=== PATIENT | male | born 1955 | race Caucasian/White ===

== ENCOUNTER 2023-12-27 19:03 | Inpatient (IN) | payer OTHER, MEDICARE ==
[~2023-12-27] VITALS: Ht 180.3 cm; Wt 152.0 kg
[2023-12-27 19:32] LABS: BASOPHILS ABSOLUTE AUTO 0.02 K/mm3 (0.00-0.23); BASOPHILS PERCENT AUTO 0 % (0-2); EOSINOPHILS ABSOLUTE AUTO 0.01 K/mm3 (0.00-0.68); EOSINOPHILS PERCENT AUTO 0 % (0-6); Hematocrit 35.1 % (37.0-53.0); Hemoglobin 11.3 g/dL (13.5-17.5); IMMATURE GRAN ABSOLUTE AUTO 0.06 K/mm3 (0.00-0.10); IMMATURE GRAN PERCENT AUTO 1 % (0-1); LYMPHOCYTES ABSOLUTE AUTO 0.27 K/mm3 (0.84-5.20); LYMPHOCYTES PERCENT AUTO 4 % (21-46); MONOCYTES ABSOLUTE AUTO 0.12 K/mm3 (0.16-1.47); MONOCYTES PERCENT AUTO 2 % (4-13); Mean Corpuscular HGB 30.5 pg (26.0-34.0); Mean Corpuscular HGB Conc 32.2 g/dL (31.5-36.5); Mean Corpuscular Volume 95 fL (80-100); Mean Platelet Volume 11.3 fL (9.1-12.4); NEUTROPHILS ABSOLUTE AUTO 6.08 K/mm3 (1.96-9.15); NEUTROPHILS PERCENT AUTO 93 % (41-73); Platelet Count 166 K/mm3 (150-400); RDW Coefficient Variation 12.8 % (11.7-14.2); Red Blood Cell Count 3.71 M/mm3 (4.30-5.90); White Blood Cell Count 6.56 K/mm3 (4.00-11.30)
[2023-12-27 19:51] LABS: Albumin, Blood 3.8 g/dL (3.4-5.0); Albumin/Globulin Ratio 0.9 (0.8-1.8); Bilirubin, Total 0.6 mg/dL (0.1-1.0); Bun/Creatinine Ratio 11.6 (12.0-20.0); Calcium, Blood 8.6 mg/dL (8.5-10.1); Creatinine, Blood 4.05 mg/dL (0.60-1.20); Globulin, Blood 4.2 g/dL (2.2-4.0); Potassium, Blood 4.7 mmol/L (3.5-5.5)
[2023-12-27] MEDS ORDERED: ELIQUIS2.5 MG PO (20:15)
[2023-12-27] MEDS ORDERED: CLOP75 PO (20:15)
[2023-12-27] MEDS ORDERED: Lidocaine 2% Viscous Soln 15 ML UDC PO ONE (20:45)
[2023-12-27] MEDS ORDERED: Nitroglycerin 0.4 MG SUBL SL PRN (20:45)
[2023-12-27] MEDS ORDERED: Mag Hydrox/AL Hydrox/Simeth 30 ML UDC PO ONE (20:45)
[2023-12-27] MEDS ORDERED: Ondansetron HCl 2 MG / ML 2ML Vial IV PRN (22:10)
[2023-12-27] MEDS ORDERED: Aspirin 81 MG Chew PO ONE ×2 (22:10→23:40)
[2023-12-27] MEDS ORDERED: Labetalol HCL 5 MG/ML 4ML Injection (Single Dose) IV ONE (22:10)
[2023-12-28] VITALS (16 sets, daily range): BP systolic 111–204; BP diastolic 60–126
[2023-12-28] MEDS ORDERED: Clopidogrel Bisulfate 75 MG Tab PO ONE (02:30)
[2023-12-28] MEDS ORDERED: Labetalol HCL 5 MG/ML 4ML Injection (Single Dose) IV PRN (02:30)
[2023-12-28] MEDS ORDERED: HydrALAZINE HCl 20 MG / ML 1ML Vial IV PRN (02:35)
[2023-12-28] MEDS ORDERED: Acetaminophen 325 MG TABLET PO PRN (02:40)
[2023-12-28] MEDS ORDERED: OxyCODONE HCL 5 MG TAB PO PRN (02:40)
[2023-12-28] MEDS ORDERED: Metoclopramide HCl 5MG / ML 2ML Vial IV PRN (02:40)
[2023-12-28] MEDS ORDERED: Nitroglycerin 1 INCH/GM PKT TOP PRN (02:45)
[2023-12-28] MEDS ORDERED: Morphine Sulfate 4 MG/1 ML Injection IV PRN (02:45)
[2023-12-28] MEDS ORDERED: Heparin Sodium,Porcine/0.5 NS 500 ML IV SCH (03:20)
[2023-12-28] MEDS ORDERED: Heparin Sodium 5000 Units/ML 1ML MDV IV ONE ×2 (03:20→10:55)
[2023-12-28] MEDS ORDERED: Albuterol 2.5 MG/3 ML VIAL INH PRN (03:40)
[2023-12-28] MEDS ORDERED: Insulin Regular 100 UNIT/ML 10ML Vial SC SCH (03:40)
[2023-12-28] MEDS ORDERED: Atorvastatin 40 MG Tab PO SCH (03:45)
[2023-12-28] MEDS ORDERED: ALBU2.5V5 INH (03:46)
[2023-12-28] MEDS ORDERED: ALBU90OI INH (03:46)
[2023-12-28] MEDS ORDERED: ATOR20 PO (03:47)
[2023-12-28] MEDS ORDERED: Vitamin B-121000 MCG PO (03:48)
[2023-12-28] MEDS ORDERED: DOXA4 PO (03:48)
[2023-12-28] MEDS ORDERED: GABA100 PO (03:49)
[2023-12-28] MEDS ORDERED: HYDRA50 PO (03:50)
[2023-12-28] MEDS ORDERED: Ipratropium/Albuterol SulF 2.5-0.5MG/3 ML Amp INH PRN (03:50)
[2023-12-28] MEDS ORDERED: HYDACE10B PO (03:51)
[2023-12-28] MEDS ORDERED: COMBIVENT RESPIM4 G1 INH (03:53)
[2023-12-28] MEDS ORDERED: IPRAT-ALBUT 0.5-3 ML INH (03:53)
[2023-12-28] MEDS ORDERED: Robaxin750 MG PO (03:54)
[2023-12-28] MEDS ORDERED: ISODIN20 PO (03:54)
[2023-12-28] MEDS ORDERED: METO50ER PO (03:55)
[2023-12-28] MEDS ORDERED: Hair, Skin & N1 EACH PO (03:55)
[2023-12-28] MEDS ORDERED: NITR.4SL SL (03:56)
[2023-12-28] MEDS ORDERED: NOVOLIN 70100 UNIT/3 SC (03:57)
[2023-12-28] MEDS ORDERED: Pataday2.5 ML BOTHEYES (03:57)
[2023-12-28] MEDS ORDERED: POTCHL20ER PO (03:58)
[2023-12-28] MEDS ORDERED: Vitamin B-650 MG PO (03:58)
[2023-12-28] MEDS ORDERED: B-1100 M1 PO (03:59)
[2023-12-28] MEDS ORDERED: TORSE20 PO (04:00)
[2023-12-28] MEDS ORDERED: NASACORT10.8 ML (04:01)
[2023-12-28] MEDS ORDERED: TURMERIC500 M2 PO (04:02)
[2023-12-28 04:04] LABS: International Normalized Ratio 1.02; Prothrombin Time Results 10.9 Sec (9.7-11.5)
--- NOTE | 2023-12-28 05:18 | NUR ---
0220 Pt arrived on unit from ED via christ with RN in attendance. Ambulated with 1 person assist to bed in room PCU 17, prateek fair. Oriented to room and unit per unit standards. Pt with mutiple past hospitalizations at neighboring facilities but first admit here. Full physical assessment obtained, admission assessment completed. Abd incision lap site x 5 dermabonded/steri-strips, WNL. Please see full assessment for additional details. Pt denies pain currently. No further complaints or concerns at this time, will continue to monitor. 0330 Heparin gtt started, managed per pharmacy. Next Anti X at 1000.
[2023-12-28 07:15] LABS: Bun/Creatinine Ratio 12.2 (12.0-20.0); Calcium, Blood 8.6 mg/dL (8.5-10.1); Potassium, Blood 4.4 mmol/L (3.5-5.5)
--- NOTE | 2023-12-28 08:50 | NUR ---
AM ASSESSMENT: Pt resting in bed. Wakes without issues. Denies chest pain, SOB at this time. LS clear. BT positive. Pulses palp. Heparin gtt running per orders. X4 lap incisions noted, pt states there are 5 but only 4 seen by this RN. Pt NPO for potential angiogram today. Dr. Barrera and Dr. Cervantes in to see Pt. No other needs. Call light in reach.
[2023-12-28] MEDS ORDERED: Gabapentin 100 MG Cap PO SCH (09:00)
[2023-12-28] MEDS ORDERED: Aspirin 81 MG TabEC PO SCH (09:00)
[2023-12-28] MEDS ORDERED: Torsemide 10 MG TAB PO SCH (09:00)
[2023-12-28] MEDS ORDERED: Clopidogrel Bisulfate 75 MG Tab PO SCH (09:00)
[2023-12-28] MEDS ORDERED: Isosorbide Dinitrate 20 MG TAB PO SCH (09:00)
[2023-12-28] MEDS ORDERED: HydrALAZINE HCl 50 MG Tab PO SCH ×2 (09:00→21:00)
[2023-12-28] MEDS ORDERED: Methocarbamol 500 MG Tab PO SCH ×2 (09:00→21:00)
[2023-12-28] MEDS ORDERED: Metoprolol Succinate 50 MG TABCR PO SCH (09:00)
[2023-12-28] MEDS ORDERED: Dose Adjust by Pharmacy XX STA (10:53)
[2023-12-28] MEDS ORDERED: Verapamil HCL 2.5 MG/ML 2ML Injection ONE (13:48)
[2023-12-28] MEDS ORDERED: Heparin Sodium 1000 Units/ML 10ML MDV ONE ×2 (13:48→13:51)
[2023-12-28] MEDS ORDERED: NS 1,000 ML IV ONE ×2 (13:49→13:51)
[2023-12-28] MEDS ORDERED: NS 250 ML IV ONE (13:49)
[2023-12-28] MEDS ORDERED: Nitroglycerin 2 MG/20 ML BTL ONE (13:49)
[2023-12-28] MEDS ORDERED: NiCARdipine HCL 1,000 MCG/5 ML SYR ONE (13:51)
[2023-12-28] MEDS ORDERED: FentaNYL Citrate 50 MCG/ML 2 ML Injection ONE (14:19)
[2023-12-28] MEDS ORDERED: Midazolam HCl 1MG / ML 2ML Vial ONE (14:19)
--- NOTE | 2023-12-28 14:19 | NUR ---
PT TAKEN TO [facility]. WILL AWAIT RETURN
[2023-12-28] MEDS ORDERED: Clopidogrel Bisulfate 300 MG Cap ONE (14:48)
[2023-12-28] MEDS ORDERED: NS 1,000 ML IV SCH (15:50)
--- NOTE | 2023-12-28 15:57 | NUR ---
UPDATE: Pt back to room after angiogram. R wrist site with TR band intact. No bleeding, oozing or swelling noted. Pt desaturating on RA. States that he doesn't want to put on his cpap at this time so placed on NC, requiring 6L to keep o2 at 92%. IVF running per orders. Heparin off. Call light in reach. Will monitor.
--- NOTE | 2023-12-28 18:58 | NUR ---
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 Pt required 6L per nc O2 when he arrived back to room, now down to 4L per nc. Will continue to titrate down. Pt temp has slowly started to increase, t-max was 99.4. NO change in R radial site or abd lap incision sites. Pt denies increase in abd pain or tenderness. Will continue to monitor. at bedside. Dr. Wu in to talk to patient and his . WIll report to night RN.
[2023-12-28] MEDS ORDERED: Gabapentin 400 MG Cap PO SCH (21:00)
--- NOTE | 2023-12-28 22:25 | NUR ---
TR BAND RECOVERED TR BAND RECOVERED AT 2223. R. RADIAL SITE IS FREE FROM BLEEDING, HEMATOMA, BRUISING, OR REDNESS. TEGADERM APPLIED, ARM BOARD IN PLACE.
[2023-12-29 03:32] VITALS: BP 143/75
[2023-12-29 04:23] LABS: BASOPHILS ABSOLUTE AUTO 0.03 K/mm3 (0.00-0.23); BASOPHILS PERCENT AUTO 0 % (0-2); EOSINOPHILS ABSOLUTE AUTO 0.01 K/mm3 (0.00-0.68); EOSINOPHILS PERCENT AUTO 0 % (0-6); Hematocrit 29.7 % (37.0-53.0); Hemoglobin 9.4 g/dL (13.5-17.5); IMMATURE GRAN ABSOLUTE AUTO 0.03 K/mm3 (0.00-0.10); IMMATURE GRAN PERCENT AUTO 0 % (0-1); LYMPHOCYTES ABSOLUTE AUTO 0.54 K/mm3 (0.84-5.20); LYMPHOCYTES PERCENT AUTO 7 % (21-46); MONOCYTES ABSOLUTE AUTO 0.74 K/mm3 (0.16-1.47); MONOCYTES PERCENT AUTO 9 % (4-13); Mean Corpuscular HGB 29.9 pg (26.0-34.0); Mean Corpuscular HGB Conc 31.6 g/dL (31.5-36.5); Mean Corpuscular Volume 95 fL (80-100); Mean Platelet Volume 10.9 fL (9.1-12.4); NEUTROPHILS ABSOLUTE AUTO 6.97 K/mm3 (1.96-9.15); NEUTROPHILS PERCENT AUTO 84 % (41-73); Platelet Count 148 K/mm3 (150-400); RDW Coefficient Variation 12.9 % (11.7-14.2); RDW Standard Deviation 44.2 fL (35.1-46.3); Red Blood Cell Count 3.14 M/mm3 (4.30-5.90); White Blood Cell Count 8.32 K/mm3 (4.00-11.30)
[2023-12-29 05:03] LABS: Albumin, Blood 3.1 g/dL (3.4-5.0); Anion Gap 12 mmol/L (3-11); Blood Urea Nitrogen 52 mg/dL (8-24); Bun/Creatinine Ratio 12.5 (12.0-20.0); CHOL/HDL RATIO 3.4; CO2, Blood 24 mmol/L (21-32); Calcium, Blood 8.5 mg/dL (8.5-10.1); Chloride, Blood 105 mmol/L (98-108); Cholesterol 131 mg/dL (50-200); Creatinine, Blood 4.16 mg/dL (0.60-1.20); Glomerular Filtration Rate 15 (60-); Glucose, Blood 176 mg/dL (70-99); HDL Cholesterol 38 mg/dL (>39); LDL/HDL RATIO 1.7; Low Density Lipoprotein Chol 66 mg/dL (0-110); Phosphorus, Blood 4.6 mg/dL (2.5-4.9); Potassium, Blood 4.1 mmol/L (3.5-5.5); Sodium, Blood 137 mmol/L (136-145); Triglycerides 133 mg/dL (30-160); Uric Acid, Blood 8.8 mg/dL (3.5-7.2); Very Low Density Lipoprot Chol 26 mg/dL (6-32)
--- NOTE | 2023-12-29 05:22 | NUR ---
SHIFT SUMMARY PT A&O X 4, ABLE TO MAKE NEEDS KNOWN. PT HYPERTENSIVE, MEDICATED PER EMAR. PT NOTED TO HAVE TEMPERATURE AT BEGINNING OF SHIFT OF 100.4, MEDICATED WITH TYLENOL PER EMAR. SPO2 >92% ON 3L NC, PT USES HOME CPAP WHILE ASLEEP. PT DENIES CP OR SOB. TR BAND RECOVERED THIS SHIFT, R. RADIAL SITE IS COVERED WITH TEGADERM AND SITE IS FREE FROM BLEEDING, HEMATOMA, BRUISING, OR REDNESS. ARM BOARD IN PLACE. PT IS SBA, USES URINAL. 5 LAP SITES TO ABDOMEN APPEAR INTACT WITH DERMABOND AND STERI STRIPS, NO REDNESS OR TENDERNESS NOTED. BOWEL SOUNDS NORMOACTIVE. PT DENIES ABDOMINAL PAIN. DR. JENNINGS CONSULTED PT AT BEGINNING OF SHIFT. PT IS RESTING QUIETLY IN BED, CALL LIGHT WITHIN REACH, BREATHING EVEN AND UNLABORED.
[2023-12-29] MEDS ORDERED: Insulin Regular 100 UNIT/ML 10ML Vial SC SCH (07:30)
[2023-12-29 08:06] VITALS: BP 133/69
--- NOTE | 2023-12-29 09:51 | NUR ---
am note this rn assumed care at 0700. vital signs stable. tele sinus rhythm with pvcs 70-80s. patient is alert and oriented x4. neuro is intact. patient is able to make needs known and uses call light appropriately. denies pain, chest pain/pressure, or shortness of breath. see shift assessment for further detials. md dean in to see patient and plan to discharge tomorrow.
[2023-12-29 11:30] VITALS: BP 142/58
[2023-12-29 15:06] VITALS: BP 163/70
--- NOTE | 2023-12-29 17:53 | NUR ---
shift summary this rn spoke with md choi and patti for patient to be discharged tomorrow and follow up with out patient vice president of brand management. plan for patient to be discharged tomorrow. vital signs remain stable. medical with tele. patient independent in the room and calls when needing assistance. no acute changes this shift.
[2023-12-29 20:00] VITALS: BP 162/66
[2023-12-29] MEDS ORDERED: Apixaban 5 MG Tab PO SCH (21:00)
[2023-12-30 03:30] VITALS: BP 159/74
[2023-12-30 04:15] LABS: Anion Gap 14 mmol/L (3-11); Blood Urea Nitrogen 65 mg/dL (8-24); Bun/Creatinine Ratio 14.5 (12.0-20.0); CO2, Blood 23 mmol/L (21-32); Calcium, Blood 8.4 mg/dL (8.5-10.1); Chloride, Blood 104 mmol/L (98-108); Creatinine, Blood 4.48 mg/dL (0.60-1.20); Glomerular Filtration Rate 13 (60-); Glucose, Blood 193 mg/dL (70-99); Phosphorus, Blood 4.2 mg/dL (2.5-4.9); Potassium, Blood 3.8 mmol/L (3.5-5.5); Sodium, Blood 137 mmol/L (136-145)
[2023-12-30 04:55] LABS: BASOPHILS ABSOLUTE AUTO 0.03 K/mm3 (0.00-0.23); BASOPHILS PERCENT AUTO 1 % (0-2); EOSINOPHILS ABSOLUTE AUTO 0.09 K/mm3 (0.00-0.68); EOSINOPHILS PERCENT AUTO 2 % (0-6); Hematocrit 26.7 % (37.0-53.0); Hemoglobin 8.8 g/dL (13.5-17.5); IMMATURE GRAN ABSOLUTE AUTO 0.02 K/mm3 (0.00-0.10); IMMATURE GRAN PERCENT AUTO 0 % (0-1); LYMPHOCYTES ABSOLUTE AUTO 0.76 K/mm3 (0.84-5.20); LYMPHOCYTES PERCENT AUTO 14 % (21-46); MONOCYTES ABSOLUTE AUTO 0.55 K/mm3 (0.16-1.47); MONOCYTES PERCENT AUTO 10 % (4-13); Mean Corpuscular HGB 30.7 pg (26.0-34.0); Mean Corpuscular Volume 93 fL (80-100); Mean Platelet Volume 10.9 fL (9.1-12.4); NEUTROPHILS ABSOLUTE AUTO 3.97 K/mm3 (1.96-9.15); NEUTROPHILS PERCENT AUTO 73 % (41-73); Platelet Count 143 K/mm3 (150-400); RDW Coefficient Variation 12.9 % (11.7-14.2); RDW Standard Deviation 43.8 fL (35.1-46.3); Red Blood Cell Count 2.87 M/mm3 (4.30-5.90); White Blood Cell Count 5.42 K/mm3 (4.00-11.30)
--- NOTE | 2023-12-30 05:23 | NUR ---
SHIFT SUMMARY PT A&O X4. VSS; OF NOTE PT SBP ELEVATED IN 160'S BUT STABLE, HRR SR IN 70 - 80'S, RR WNL, SPO2 GREATER THAN 94% ON RA. PT NEEDING 1 - 2 LPM WHILE SLEEPING OR PRN, CPAP NIGHTLY. PT MANAGES INDEPENDENTLY. NO EVENTS OF CP/PRESSURE, DIZZINESS, N/V/D, OR PALPITATIONS. PT DENIES FINNEGAN, DIZZINESS, NUMBNESS OR TINGLING. NO COMPLAINTS OF GENERALIZED PAIN. PT WITH MILD DYSPNEA WITH EXERTION, SPO2 MAINTAINS ABOVE. PT USING URINAL OR RESTROOM INDEPENDENTLY. R RADIAL SITE WNL, FULLY RECOVERED AND NO CHANGES. ABD LAP SITES WITH MILD REDNESS AROUND INCISION SITE, OTHERWISE WNL. NO GI/ CONCERNS PER PT. PT ABLE TO MAKE NEEDS KNOWN. CALL LIGHT IN REACH. PT BEING TRANSFERRED TO MEDICAL FLOOR AT THIS TIME, REPORT TO BONNIE ALLRED. PT BELONGINGS SENT WITH PT. PT TRANSPORTED VIA WHEELCHAIR WITH 2 LPM NC.
--- NOTE | 2023-12-30 06:22 | NUR ---
SECOND TIME WORKER SECOND TIME WORKER PATIENT IS A&OX4, BP ELEVATED, ON 2L NC, USES HOME CAP AT NIGHT, ON TELE RUNNING SINUS RHYTHM IN 80S. PATIENT JUST GOT TRANSFER FROM PCU UNIT. PATIENT IS HERE FOR NSTEMI, ANGIO WAS DONE AND STENT PLACED ON 12/28/23 PATIENT [place] [address], MD NOTIFIED, NO NEW ORERS. PATIENT HAD A NOSE BLEED FROM OXYGEN USE, HAS A SMALL PUNCTURE WOUND TO R EARLOB, HAS 5 LAB SITES FROM PREVIOUS PROCEDURE, SCATTERED BRUISING TO REMI LOWER EXTREMITIES. PATIENT IS INDEPENDENT IN ROOM, USES URINAL AT BEDSIDE,
[2023-12-30 07:21] VITALS: BP 174/87
[2023-12-30] MEDS ORDERED: Doxazosin Mesylate 2 MG Tab PO SCH (09:00)
[2023-12-30] MEDS ORDERED: POTA10T PO (13:10)
--- NOTE | 2023-12-30 13:29 | NUR ---
DISCHARGE ORDERS COMPLETED AND DISCUSSED WITH PT EXPRESSING UNDERSTANDING. TO [facility] VIA W/C.
--- NOTE | 2023-12-30 14:08 | NUR ---
VSS, denies SOB, denies any pain, A-OX4, ambulates independently, on RA home CPAP at night. Lungs diminished, heart regular, bowel sounds normative, skin tear on R ear dressing C/D/I. Pt D/C at 1325, D/C instructions given, safety ensured.
[2023-12-31 08:52] LABS: HEPATITIS B SURFACE ANTIGEN Negative (Negative)
[2024-01-01 11:14] LABS: QUANTIFERON PLUS TB1 MINUS NIL 0.01 IU/mL (<=0.34)
== END 2023-12-30 13:30 | disposition home or self-care (01) | DRG 174 ==
LOC: ER 19:03 → PCU 19:04 → ERHOLD 19:04 → PCU 12-28 02:18 → MEDS 12-30 05:48
PROVIDERS: Hospitalist; Internal Medicine Cardiovascular Disease; Student in an Organized Health Care Education/Training Program; ADMIT Family Medicine
PROC: 027035Z Dilation of Coronary Artery, One Artery with Two Drug-eluting Intraluminal Devices, Percutaneous Approach (ICD-10-PCS; principal; 2023-12-28)
PROC: B2111ZZ Fluoroscopy of Multiple Coronary Arteries using Low Osmolar Contrast (ICD-10-PCS; 2023-12-28)
PROC: 4A023N7 Measurement of Cardiac Sampling and Pressure, Left Heart, Percutaneous Approach (ICD-10-PCS; 2023-12-28)
PROC: 5A09357 Assistance with Respiratory Ventilation, Less than 24 Consecutive Hours, Continuous Positive Airway Pressure (ICD-10-PCS; 2023-12-28)
DX: I21.4 Non-ST elevation (NSTEMI) myocardial infarction (principal); N18.4 Chronic kidney disease, stage 4 (severe); I48.0 Paroxysmal atrial fibrillation; E11.22 Type 2 diabetes mellitus with diabetic chronic kidney disease; I16.0 Hypertensive urgency; D63.1 Anemia in chronic kidney disease; R94.31 Abnormal electrocardiogram [ECG] [EKG]; E11.42 Type 2 diabetes mellitus with diabetic polyneuropathy; N40.0 Benign prostatic hyperplasia without lower urinary tract symptoms; E78.5 Hyperlipidemia, unspecified; I25.119 Atherosclerotic heart disease of native coronary artery with unspecified angina pectoris; J44.9 Chronic obstructive pulmonary disease, unspecified; E66.01 Morbid (severe) obesity due to excess calories; Z87.891 Personal history of nicotine dependence; Z79.899 Other long term (current) drug therapy; Z79.01 Long term (current) use of anticoagulants; Z79.4 Long term (current) use of insulin; I25.2 Old myocardial infarction; Z79.02 Long term (current) use of antithrombotics/antiplatelets; I12.9 Hypertensive chronic kidney disease with stage 1 through stage 4 chronic kidney disease, or unspecified chronic kidney disease; Z95.5 Presence of coronary angioplasty implant and graft; Z98.890 Other specified postprocedural states; Z68.42 Body mass index [BMI] 45.0-49.9, adult
CPT/HCPCS: 36415; 71046; 76937; 80048; 80053; 80061; 80069; 82947; 84484; 84550; 85025; 85347; 85610; 85730; 86480; 87340; 93005; 93010; 93306; 93458; 94760; 94762; 96365; 96366; 96374; 96375; 99152; 99153; 99285-25; A9270; C1725; C1769; C1874; C1887; C1894; C9600; C9601; G0378; J0360; J1644; J1815; J2250; J3010; J7030; J7050; Q9967